=== PATIENT | female | born 1960 | race Hispanic/Latino ===

== ENCOUNTER → 2019-07-22 | Outpatient (CLI) | payer BC | END | disposition home or self-care (01) | LOC: RAH 14:02 | PROVIDERS: ATTEND Nurse Practitioner Adult Health | DX: Z12.31 Encounter for screening mammogram for malignant neoplasm of breast (principal) | CPT/HCPCS: 77067 ==

== ENCOUNTER → 2020-07-27 | Outpatient (CLI) | payer BC | END | disposition home or self-care (01) | LOC: RAH 14:50 | PROVIDERS: ATTEND Nurse Practitioner Adult Health | DX: Z12.31 Encounter for screening mammogram for malignant neoplasm of breast (principal); N64.89 Other specified disorders of breast | CPT/HCPCS: 77067 ==